=== PATIENT | female | born 1960 | race African-American/Black ===

== ENCOUNTER 2019-06-02 23:09 | Emergency (ER) | payer OTHER ==
[~2019-06-02] VITALS: Ht 160 cm; Wt 113.6 kg
[~2019-06-02 23:09] MED LIST: AMLODIPINE; DIPH25CA85 PO; FAMO-136 PO; GABAPENTIN
[2019-06-02] MEDS ORDERED: RIVA20TA PO (23:44)
[2019-06-02] MEDS ORDERED: LISI-662 PO (23:44)
[2019-06-02] MEDS ORDERED: HYDR-4455 PO (23:44)
[2019-06-03 01:09] LABS: BASOPHILS % (AUTO) 1.3 % (0.0-2.0); EOSINOPHILS % (AUTO) 5.7 % (1.0-6.0); HEMATOCRIT 39.7 % (36-46); HEMOGLOBIN 12.6 g/dL (12.0-16.0); LYMPHOCYTES # (AUTO) 2.2 K/uL (1.0-4.8); MEAN CORPUSCULAR HEMOGLOBIN 24.6 pg (26.0-34.0); MEAN CORPUSCULAR HGB CONC 31.6 G/dL (31.0-37.0); MEAN CORPUSCULAR VOLUME 78 fL (80-100); MONOCYTES # (AUTO) 0.6 K/uL (0.1-1.0); MONOCYTES % (AUTO) 8.2 % (2.0-9.0); NEUTROPHILS % (AUTO) 54.8 % (40.0-70.0); PLATELET COUNT (AUTO) 244 K/uL (150-450); RED CELL DISTRIBUTION WIDTH 16.1 % (11.5-14.5)
[2019-06-03 01:22] LABS: RAPID GROUP A STREP NEGATIVE (NEGATIVE)
[2019-06-03 01:36] LABS: INFLUENZA TYPE A NEGATIVE FOR TYPE A (NEGATIVE); INFLUENZA TYPE B NEGATIVE FOR TYPE B (NEGATIVE)
[2019-06-03 02:05] VITALS: BP 105/84
== END 2019-06-03 02:15 | disposition home or self-care (01) ==
LOC: EMS 23:11
DX: J06.9 Acute upper respiratory infection, unspecified (principal); I10 Essential (primary) hypertension; I48.91 Unspecified atrial fibrillation; F17.210 Nicotine dependence, cigarettes, uncomplicated; F14.90 Cocaine use, unspecified, uncomplicated; Z88.0 Allergy status to penicillin; Z88.6 Allergy status to analgesic agent; Z79.899 Other long term (current) drug therapy
CPT/HCPCS: 87430; 87804

== ENCOUNTER 2023-08-18 08:59 | Inpatient (IN) | payer OTHER ==
[~2023-08-18] VITALS: Ht 160 cm; Wt 105.1 kg
[~2023-08-18 08:59] MED LIST changes: -AMLODIPINE; -DIPH25CA85 PO; -FAMO-136 PO; -GABAPENTIN; +HYDR-4455 PO; +LISI-894 PO; +RIVA20TA PO
[2023-08-18] MEDS ORDERED: LISI20TA24 PO (09:05)
[2023-08-18] MEDS: MORPHINE SULFATE 2 MG/ML SYRINGE IVP ONE ×2 (09:44→11:35)
[2023-08-18] MEDS: IPRATROPIUM BROMIDE 0.5 MG/2.5 ML NEB SOLUTION NEB ONE (09:47)
[2023-08-18] MEDS: ALBUTEROL SULFATE 2.5 MG/0.5 ML NEB SOLUTION NEB ONE (09:47)
[2023-08-18 09:49] VITALS: PULSE 75; RESP 17; O2SAT 98
[2023-08-18 09:52] VITALS: PULSE 75; RESP 17; O2SAT 98
[2023-08-18] MEDS ORDERED: IOHEXOL 350 MG/ML 100 ML VIAL ONE (09:59)
[2023-08-18] MEDS ORDERED: SODIUM CHLORIDE 0.9% 100 ML ONE (09:59)
[2023-08-18 10:06] LABS: BASOPHILS % (AUTO) 0.6 % (0.0-2.0); EOSINOPHILS % (AUTO) 3.3 % (1.0-6.0); HEMOGLOBIN 13.3 g/dL (12.0-16.0); LYMPHOCYTES # (AUTO) 2.2 K/uL (1.0-4.8); LYMPHOCYTES % (AUTO) 23.5 % (22.0-44.0); MEAN CORPUSCULAR HEMOGLOBIN 26.2 pg (26.0-34.0); MEAN CORPUSCULAR HGB CONC 32.4 G/dL (31.0-37.0); MEAN CORPUSCULAR VOLUME 81 fL (80-100); MONOCYTES # (AUTO) 0.6 K/uL (0.1-1.0); MONOCYTES % (AUTO) 6.6 % (2.0-9.0); NEUTROPHILS # (AUTO) 6.2 K/uL (1.8-7.7); PLATELET COUNT (AUTO) 267 K/uL (150-450); RED BLOOD CELL COUNT(AUTO) 5.07 MIL/uL (4.00-5.20); RED CELL DISTRIBUTION WIDTH 14.4 % (11.5-14.5); WHITE BLOOD COUNT (AUTO) 9.4 K/uL (4.5-11.0)
[2023-08-18 10:14] LABS: ANION GAP 7 mmol/L (8-16); CALCIUM, TOTAL 8.6 mg/dL (8.8-10.5); CARBON DIOXIDE 27 mmol/L (22-29); CHLORIDE 107 mmol/L (98-107); GLOMERULAR FILTR. RATE CALC > 60 mL/min (>60); GLUCOSE,RANDOM 94 mg/dL (70-110); POTASSIUM 4.9 mmol/L (3.5-5.1); SODIUM SERUM 141 mmol/L (136-145); UREA NITROGEN, BLOOD 12 mg/dL (7-18)
[2023-08-18 10:17] LABS: INR 0.9 (0.9-1.1); PROTHROMBIN TIME 9.8 SEC (9.4-11.6)
[2023-08-18 10:22] LABS: TROPONIN I-HIGH SENSITIVITY 4 ng/L (<51)
[2023-08-18 10:29] LABS: B-TYPE NATRIURETIC PEPTIDE 89 pg/mL (0-100)
[2023-08-18 10:39] LABS: ALANINE AMINOTRANSFERASE 18 U/L (12-78); ALBUMIN 2.9 g/dL (3.4-5.0); ALKALINE PHOSPHATASE 107 U/L (46-116); ASPARTATE AMINOTRANSFERASE 20 U/L (15-37); BILIRUBIN,TOTAL 0.3 mg/dL (0.1-1.0); CREATINE KINASE, TOTAL ONLY 336 U/L (26-192); TOTAL PROTEIN, SERUM 7.1 g/dL (6.4-8.2)
[2023-08-18 11:59] LABS: COVID AG,FIA SOURCE NASAL SWAB
[2023-08-18] MEDS: DiphenhydrAMINE HCL 50 MG/ML VIAL IVP ONE (12:08)
[2023-08-18 12:19] LABS: SARS-COV2 (COVID) ANTIGEN,FIA Negative (Negative)
[2023-08-18] MEDS: MethylPREDNISolone SOD SUCC 125 MG/2 ML VIAL IVP ONE (12:20)
[2023-08-18] MEDS ORDERED: MAGNESIUM HYDROXIDE SUSPENSION 30 ML UDCUP PO PRN (13:45)
[2023-08-18] MEDS ORDERED: ACETAMINOPHEN 325 MG TABLET PO PRN (13:45)
[2023-08-18] MEDS ORDERED: ZOLPIDEM TARTRATE 5 MG TABLET PO PRN (13:45)
[2023-08-18] MEDS ORDERED: BISACODYL 10 MG RECTAL RECTAL SUPPOSITORY PR PRN (13:45)
[2023-08-18] MEDS ORDERED: IPRATROPIUM BROMIDE 0.5 MG/2.5 ML NEB SOLUTION NEB PRN (13:45)
[2023-08-18] MEDS ORDERED: ALBUTEROL SULFATE 2.5 MG/0.5 ML NEB SOLUTION NEB PRN (13:45)
[2023-08-18] MEDS ORDERED: ONDANSETRON HCL 4 MG/2 ML VIAL IVP PRN (13:45)
[2023-08-18] MEDS ORDERED: MORPHINE SULFATE 2 MG/ML SYRINGE IVP PRN (13:45)
[2023-08-18] MEDS: AZITHROMYCIN 500 MG/NS 250 ML IV SCH (14:27)
[2023-08-18 14:38] LABS: PH,URINE DRUG SCREEN 7.5 (5.0-8.0)
[2023-08-18 14:44] LABS: ALCOHOL, URINE DRUG SCREEN NEGATIVE (NEGATIVE); AMPHET/METH SCREEN,URINE NEGATIVE (NEGATIVE); BARBITURATE SCREEN, URINE NEGATIVE (NEGATIVE); BENZODIAZEPINES SCREEN,URINE NEGATIVE (NEGATIVE); CANNABINOID SCREEN,URINE POSITIVE (NEGATIVE); COCAINE SCREEN,URINE NEGATIVE (NEGATIVE); METHADONE SCREEN, URINE NEGATIVE (NEGATIVE); OPIATE SCREEN,URINE POSITIVE (NEGATIVE); PHENCYCLIDINE SCREEN,URINE NEGATIVE (NEGATIVE)
[2023-08-18 14:56] VITALS: PULSE 84; RESP 24; O2SAT 94
[2023-08-18] MEDS: ALBUTEROL SULFATE 2.5 MG/0.5 ML NEB SOLUTION NEB SCH (14:56)
[2023-08-18] MEDS: IPRATROPIUM BROMIDE 0.5 MG/2.5 ML NEB SOLUTION NEB SCH (14:56)
[2023-08-18] MEDS: HEPARIN SODIUM,PORCINE 5,000 UNITS/ML VIAL SQ SCH (15:26)
[2023-08-18] MEDS: HYDROCODONE/ACETAMINOPHEN 5-325 MG TABLET PO PRN (18:21)
[2023-08-18] MEDS: MethylPREDNISolone SOD SUCC 125 MG/2 ML VIAL IVP SCH (18:22)
[2023-08-18 19:47] VITALS: PULSE 74; RESP 16; O2SAT 98
[2023-08-18 20:02] VITALS: PULSE 71; RESP 16; O2SAT 99
[2023-08-18 20:15] VITALS: BP 127/51; PULSE 74; RESP 18; TEMP 98
[2023-08-18] MEDS: GuaiFENesin SR 600 MG ER TABLET PO SCH (23:28)
[2023-08-18] MEDS: DOCUSATE SODIUM 100 MG CAPSULE PO SCH (23:29)
[2023-08-18] MEDS: BENZONATATE 100 MG CAPSULE PO SCH (23:29)
[2023-08-19] VITALS (14 sets, daily range): BP systolic 120–149; BP diastolic 47–90; PULSE 68–90; RESP 16–19; TEMP 97.4–98.5; O2SAT 93–99
[2023-08-19 07:28] LABS: BASOPHILS % (AUTO) 0.5 % (0.0-2.0); EOSINOPHILS % (AUTO) 0 % (1.0-6.0); HEMATOCRIT 40.6 % (36-46); HEMOGLOBIN 13.1 g/dL (12.0-16.0); LYMPHOCYTES # (AUTO) 1.4 K/uL (1.0-4.8); LYMPHOCYTES % (AUTO) 10.9 % (22.0-44.0); MEAN CORPUSCULAR HEMOGLOBIN 26.1 pg (26.0-34.0); MEAN CORPUSCULAR HGB CONC 32.3 G/dL (31.0-37.0); MEAN CORPUSCULAR VOLUME 81 fL (80-100); MONOCYTES # (AUTO) 0.2 K/uL (0.1-1.0); MONOCYTES % (AUTO) 1.7 % (2.0-9.0); NEUTROPHILS # (AUTO) 11.2 K/uL (1.8-7.7); PLATELET COUNT (AUTO) 274 K/uL (150-450); RED BLOOD CELL COUNT(AUTO) 5.02 MIL/uL (4.00-5.20); RED CELL DISTRIBUTION WIDTH 14.4 % (11.5-14.5); WHITE BLOOD COUNT (AUTO) 12.9 K/uL (4.5-11.0)
[2023-08-19 07:37] LABS: ANION GAP 10 mmol/L (8-16); CALCIUM, TOTAL 8.5 mg/dL (8.8-10.5); CARBON DIOXIDE 23 mmol/L (22-29); CHLORIDE 106 mmol/L (98-107); CREATININE 1.03 mg/dL (0.60-1.30); GLOMERULAR FILTR. RATE CALC > 60 mL/min (>60); GLUCOSE,RANDOM 176 mg/dL (70-110); POTASSIUM 4.2 mmol/L (3.5-5.1); SODIUM SERUM 139 mmol/L (136-145); UREA NITROGEN, BLOOD 12 mg/dL (7-18)
[2023-08-19 08:00] LABS: NEUTROPHILS % (AUTO) 86.9 % (40.0-70.0)
[2023-08-19 08:01] LABS: RBC MORPHOLOGY COMMENT NORMAL RBC MORPH
[2023-08-19] MEDS: LISINOPRIL 20 MG TABLET PO SCH (08:58)
[2023-08-19] MEDS: PANTOPRAZOLE SODIUM 40 MG DR TABLET PO SCH (08:58)
[2023-08-19] MEDS: NICOTINE 14 MG/24 HOUR PATCH TD SCH (12:00)
[2023-08-19] MEDS: BUDESONIDE 0.5 MG/2 ML NEB SOLUTION NEB SCH (20:09)
[2023-08-20 00:02] VITALS: BP 140/72; PULSE 90; RESP 19; TEMP 98
[2023-08-20 02:22] VITALS: PULSE 89; RESP 21; O2SAT 96
[2023-08-20 04:25] VITALS: BP 151/76; PULSE 71; RESP 17; TEMP 97.9
[2023-08-20 06:08] LABS: BASOPHILS % (AUTO) 0.6 % (0.0-2.0); EOSINOPHILS % (AUTO) 0 % (1.0-6.0); HEMATOCRIT 40.7 % (36-46); HEMOGLOBIN 13.2 g/dL (12.0-16.0); LYMPHOCYTES # (AUTO) 1.4 K/uL (1.0-4.8); LYMPHOCYTES % (AUTO) 11.2 % (22.0-44.0); MEAN CORPUSCULAR HEMOGLOBIN 26.2 pg (26.0-34.0); MEAN CORPUSCULAR HGB CONC 32.5 G/dL (31.0-37.0); MEAN CORPUSCULAR VOLUME 81 fL (80-100); MONOCYTES # (AUTO) 0.5 K/uL (0.1-1.0); MONOCYTES % (AUTO) 3.9 % (2.0-9.0); NEUTROPHILS # (AUTO) 10.2 K/uL (1.8-7.7); NEUTROPHILS % (AUTO) 84.3 % (40.0-70.0); PLATELET COUNT (AUTO) 281 K/uL (150-450); RED BLOOD CELL COUNT(AUTO) 5.05 MIL/uL (4.00-5.20); RED CELL DISTRIBUTION WIDTH 14.4 % (11.5-14.5); WHITE BLOOD COUNT (AUTO) 12.1 K/uL (4.5-11.0)
[2023-08-20 06:19] LABS: ANION GAP 10 mmol/L (8-16); CALCIUM, TOTAL 8.5 mg/dL (8.8-10.5); CARBON DIOXIDE 26 mmol/L (22-29); CHLORIDE 103 mmol/L (98-107); GLOMERULAR FILTR. RATE CALC > 60 mL/min (>60); GLUCOSE,RANDOM 124 mg/dL (70-110); POTASSIUM 4.8 mmol/L (3.5-5.1); SODIUM SERUM 139 mmol/L (136-145); UREA NITROGEN, BLOOD 16 mg/dL (7-18)
[2023-08-20 07:39] VITALS: BP 160/90; PULSE 74; RESP 18; TEMP 98.1
[2023-08-20 08:00] VITALS: PULSE 80; PULSE 85; RESP 16; O2SAT 96; O2SAT 98
[2023-08-20 09:00] VITALS: PULSE 82; RESP 16; O2SAT 99
[2023-08-20] MEDS ORDERED: PRED-554 PO (11:10)
[2023-08-20] MEDS ORDERED: LISI-894 PO (11:10)
[2023-08-20] MEDS ORDERED: FLUT1BLS19 IH (11:10)
[2023-08-20] MEDS ORDERED: IPRA4AER IH (11:10)
[2023-08-20] MEDS: MethylPREDNISolone SOD SUCC 40 MG/ML VIAL IVP SCH (12:09)
[2023-08-20] MEDS ORDERED: TRAM50TA5 PO (12:22)
[2023-08-20] MEDS ORDERED: INFLUENZA VIRUS VACCINE QVS 2023-24 (6MO+)/PF 60 MCG/0.5 ML SYRINGE IM. ONE (12:45)
[2023-08-20] MEDS ORDERED: PNEUMOCOCCAL VACCINE POLYVALENT 0.5 ML SYRINGE [PPSV23] IM. ONE (12:45)
[2023-08-21] MEDS ORDERED: PredniSONE 20 MG TABLET PO SCH (09:00)
== END 2023-08-20 12:50 | disposition home or self-care (01) | DRG 191 ==
LOC: EMS 08:59 → 5S 16:57
PROVIDERS: ADMIT Internal Medicine; ATTEND Internal Medicine
DX: J44.1 Chronic obstructive pulmonary disease with (acute) exacerbation (principal); Z68.41 Body mass index [BMI] 40.0-44.9, adult; J43.9 Emphysema, unspecified; I10 Essential (primary) hypertension; E66.01 Morbid (severe) obesity due to excess calories; I48.91 Unspecified atrial fibrillation; F17.210 Nicotine dependence, cigarettes, uncomplicated; Z20.822 Contact with and (suspected) exposure to COVID-19; M25.511 Pain in right shoulder; Z91.148 Patient's other noncompliance with medication regimen for other reason; Z86.718 Personal history of other venous thrombosis and embolism; Z86.711 Personal history of pulmonary embolism; Z88.6 Allergy status to analgesic agent; Z88.0 Allergy status to penicillin; Z88.8 Allergy status to other drugs, medicaments and biological substances; Z79.899 Other long term (current) drug therapy
CPT/HCPCS: 36245; 36569; 71045; 71275; 76937; 80048; 80053; 80307; 82550; 83880; 84484; 85025; 85610; 85730; 93005; 93970; 94640; 99285; J0456; J1200; J1644; J2270; J2920; J2930; J7050; Q9967; 36415-L1; 36415-TC; J7613

== ENCOUNTER 2024-04-16 20:48 | Emergency (ER) | payer MEDICAID, OTHER ==
[~2024-04-16] VITALS: Ht 160 cm; Wt 100.0 kg
[~2024-04-16 20:48] MED LIST changes: +APIX5TAB PO; +FLUT1BLS19 IH; -HYDR-4455 PO; +IPRA4AER IH; +LEVO250T75 PO; -LISI-894 PO; +METO25 PO; -RIVA20TA PO; +TRAM50TA5 PO
[2024-04-16 20:53] VITALS: TEMP 97.9
[2024-04-16 21:31] LABS: BASOPHILS % (AUTO) 0.6 % (0.0-2.0); EOSINOPHILS % (AUTO) 6.1 % (1.0-6.0); HEMATOCRIT 42.7 % (36-46); HEMOGLOBIN 13.6 g/dL (12.0-16.0); LYMPHOCYTES # (AUTO) 3.2 K/uL (1.0-4.8); LYMPHOCYTES % (AUTO) 31.2 % (22.0-44.0); MEAN CORPUSCULAR HEMOGLOBIN 25.5 pg (26.0-34.0); MEAN CORPUSCULAR HGB CONC 31.8 G/dL (31.0-37.0); MEAN CORPUSCULAR VOLUME 80 fL (80-100); MONOCYTES # (AUTO) 0.6 K/uL (0.1-1.0); MONOCYTES % (AUTO) 6.2 % (2.0-9.0); NEUTROPHILS # (AUTO) 5.8 K/uL (1.8-7.7); NEUTROPHILS % (AUTO) 55.9 % (40.0-70.0); PLATELET COUNT (AUTO) 231 K/uL (150-450); RED BLOOD CELL COUNT(AUTO) 5.31 MIL/uL (4.00-5.20); RED CELL DISTRIBUTION WIDTH 16.6 % (11.5-14.5); WHITE BLOOD COUNT (AUTO) 10.4 K/uL (4.5-11.0)
[2024-04-16 21:33] LABS: ANION GAP 11 mmol/L (8-16); CALCIUM, TOTAL 8.4 mg/dL (8.8-10.5); CARBON DIOXIDE 25 mmol/L (22-29); CHLORIDE 107 mmol/L (98-107); CREATININE 0.94 mg/dL (0.60-1.30); GLOMERULAR FILTR. RATE CALC > 60 mL/min (>60); GLUCOSE,RANDOM 123 mg/dL (70-110); POTASSIUM 3.8 mmol/L (3.5-5.1); SODIUM SERUM 143 mmol/L (136-145); UREA NITROGEN, BLOOD 7 mg/dL (7-18)
[2024-04-16 21:43] VITALS: BP 115/71; O2SAT 99
[2024-04-16 21:50] LABS: TROPONIN I-HIGH SENSITIVITY 5 ng/L (<51)
[2024-04-16] MEDS: TraMADol HCL 50 MG TABLET PO ONE (23:03)
[2024-04-16] MEDS: IPRATROPIUM BROMIDE 0.5 MG/2.5 ML NEB SOLUTION NEB ONE (23:37)
[2024-04-16] MEDS: ALBUTEROL SULFATE 2.5 MG/0.5 ML NEB SOLUTION NEB ONE (23:37)
[2024-04-16 23:45] VITALS: PULSE 66; RESP 18; O2SAT 96
[2024-04-16] MEDS: AZITHROMYCIN 500 MG TABLET PO ONE (23:48)
[2024-04-16] MEDS: PredniSONE 20 MG TABLET PO ONE (23:48)
[2024-04-17] MEDS ORDERED: AZIT250T9 PO (00:45)
[2024-04-17] MEDS ORDERED: PRED-554 PO (00:45)
== END 2024-04-17 00:54 | disposition home or self-care (01) ==
LOC: EMS 20:48
DX: R07.89 Other chest pain (principal); I10 Essential (primary) hypertension; I48.91 Unspecified atrial fibrillation; J44.9 Chronic obstructive pulmonary disease, unspecified; F17.210 Nicotine dependence, cigarettes, uncomplicated; Z86.718 Personal history of other venous thrombosis and embolism; Z88.0 Allergy status to penicillin; Z88.6 Allergy status to analgesic agent
CPT/HCPCS: 99285; 71045; 80048; 84484; 85025; 36415; 94640; 93005; J0456; J7512; 99406; J7613

== ENCOUNTER 2024-08-19 18:26 | Emergency (ER) | payer OTHER ==
[~2024-08-19] VITALS: Ht 160 cm; Wt 97.7 kg
[~2024-08-19 18:26] MED LIST changes: +PRED-554 PO
[2024-08-19 18:30] VITALS: TEMP 97.7
[2024-08-19] MEDS ORDERED: ASPI-1450 PO (18:34)
[2024-08-19] MEDS ORDERED: CILO100T3 PO (18:34)
[2024-08-19] MEDS ORDERED: GABA-1181 PO (18:34)
[2024-08-19] MEDS ORDERED: METO25 PO (18:34)
[2024-08-19] MEDS ORDERED: ROSU20TA98 PO (18:34)
[2024-08-19] MEDS ORDERED: LISI-662 PO (18:34)
[2024-08-19 19:36] VITALS: BP 142/88; PULSE 89; RESP 20; O2SAT 98
[2024-08-19 20:41] LABS: BASOPHILS % (AUTO) 0.6 % (0.0-2.0); EOSINOPHILS % (AUTO) 7.3 % (1.0-6.0); HEMATOCRIT 43.4 % (36-46); HEMOGLOBIN 14.1 g/dL (12.0-16.0); LYMPHOCYTES # (AUTO) 2.7 K/uL (1.0-4.8); LYMPHOCYTES % (AUTO) 32.9 % (22.0-44.0); MEAN CORPUSCULAR HEMOGLOBIN 25.8 pg (26.0-34.0); MEAN CORPUSCULAR HGB CONC 32.6 G/dL (31.0-37.0); MEAN CORPUSCULAR VOLUME 79 fL (80-100); MONOCYTES # (AUTO) 0.5 K/uL (0.1-1.0); MONOCYTES % (AUTO) 6.1 % (2.0-9.0); NEUTROPHILS # (AUTO) 4.4 K/uL (1.8-7.7); NEUTROPHILS % (AUTO) 53.1 % (40.0-70.0); PLATELET COUNT (AUTO) 225 K/uL (150-450); RED BLOOD CELL COUNT(AUTO) 5.48 MIL/uL (4.00-5.20); RED CELL DISTRIBUTION WIDTH 16.3 % (11.5-14.5); WHITE BLOOD COUNT (AUTO) 8.3 K/uL (4.5-11.0)
[2024-08-19 20:42] LABS: ANION GAP 6 mmol/L (8-16); CALCIUM, TOTAL 8.9 mg/dL (8.8-10.5); CARBON DIOXIDE 27 mmol/L (22-29); CHLORIDE 107 mmol/L (98-107); CREATININE 0.92 mg/dL (0.60-1.30); GLOMERULAR FILTR. RATE CALC > 60 mL/min (>60); GLUCOSE,RANDOM 93 mg/dL (70-110); SODIUM SERUM 140 mmol/L (136-145); UREA NITROGEN, BLOOD 7 mg/dL (7-18)
[2024-08-19 21:01] LABS: APPEARANCE,URINE HAZY (CLEAR); BILIRUBIN,URINE NEGATIVE (NEGATIVE); COLOR,URINE YELLOW (YELLOW); GLUCOSE, URINE (UA) NEGATIVE (NEGATIVE); KETONES,URINE NEGATIVE (NEGATIVE); LEUKOCYTE ESTERASE ,URINE SMALL (NEGATIVE); NITRATE,URINE NEGATIVE (NEGATIVE); OCCULT BLOOD,URINE NEGATIVE (NEGATIVE); PROTEIN,URINE 30-70 mg/dL (NEGATIVE); SPECIFIC GRAVITIY, URINE 1.025 (1.003-1.030)
[2024-08-19 21:17] LABS: BACTERIA,URINE Moderate /HPF (None Seen); RBC,URINE None Seen /HPF (0-2); SQUAMOUS EPITHELIAL CELL,UR Moderate /LPF (None Seen)
[2024-08-19] MEDS ORDERED: CEPH-558 PO (22:39)
[2024-08-19] MEDS ORDERED: HYDR30CR3 TP (22:40)
[2024-08-19] MEDS: CEPHALEXIN MONOHYDRATE 500 MG CAPSULE PO ONE (22:59)
== END 2024-08-19 23:46 | disposition home or self-care (01) ==
LOC: EMS 18:26
DX: L20.9 Atopic dermatitis, unspecified (principal); N39.0 Urinary tract infection, site not specified; J44.9 Chronic obstructive pulmonary disease, unspecified; I10 Essential (primary) hypertension; F17.210 Nicotine dependence, cigarettes, uncomplicated; Z79.01 Long term (current) use of anticoagulants; Z79.82 Long term (current) use of aspirin; Z88.0 Allergy status to penicillin; Z88.6 Allergy status to analgesic agent; Z86.718 Personal history of other venous thrombosis and embolism; Z79.899 Other long term (current) drug therapy
CPT/HCPCS: 71045; 80048; 81001; 85025; 87086; 99284; 36415-L1; 36415-TC